=== PATIENT | female | born 1965 | race Caucasian/White ===

== ENCOUNTER 2024-07-10 09:00 | Observation (INO) | payer MEDICAID, SELFPAY ==
[2024-07-10] VITALS (16 sets, daily range): BP systolic 109–172; BP diastolic 47–107; PULSE 54–157; RESP 11–98; TEMP 36.4–37.4; O2SAT 96–99; BMI 36.9
--- NOTE | 2024-07-10 09:07 | XR_ITS ---
Examination: AP chest single view Technique one AP portable upright chest single view Exam date and time: July 10, 2024 1013 hours INDICATIONS: Shortness of breath today. FINDINGS: Lordotic chest. Normal heart size Lungs are clear. Moderate osteopenia IMPRESSION: No pneumonia or pulmonary edema
--- NOTE | 2024-07-10 09:07 | EKG_ITS ---
[facility] Test Date: 2024-07-10 Pat Name: RAJESH POE Department: Room: - Gender: Female Energy Assistant: : 1965 Requested By: Milton Marcelo Order Number: [id number] Reading MD: Milton Marcelo Measurements Intervals [place] Rate: 148 P: TX: QRS: 70 QRSD: 87 T: -24 QT: 288 QTc: 452 Interpretive Statements ATRIAL FIBRILLATION WITH RAPID VENTRICULAR RESPONSE NONSPECIFIC ST & T-WAVE ABNORMALITY No previous ECG available for comparison /store/S0/[id number].pdf
--- NOTE | 2024-07-10 09:07 | EDNOTE_ITS ---
ED Arrhythmia Palp. RME/HPI General Chief Complaint: Arrhythmia/Palpitations Stated Complaint: RACING HEART RATE Time Seen by Provider: 07/10/24 09:06 Arrival date/time: 07/10/24 09:00 RME / HPI RME / HPI narrative: This section includes all my notes and documentations, including HPI, PE, and ED course.? Milton Moore MD HPI: 58 year old female with history of hypertension presents to the ED BIBA from home for evaluation of elevated heart rate beginning ~ 1 hour prior to arrival. Per medics, ECG was performed which showed atrial fibrillation with RVR. No medications given. Denies fevers, chills, chest pain, shortness of breath, abdominal pain, n/v/d, or urinary symptoms. Denies consuming energy drinks or coffee today. Denies any known history of atrial fibrillation. No other compaints. ROS: All negative except as documented in HPI. Physical Exam: General:? Alert and oriented.? No acute distress when remaining still.?? Eyes:? Conjunctivae and lids clear.? ENT:? No nasal congestion.? Neck:? Supple.? Heart:? Irregularly irregular at 150bpm. ? Lungs:? No respiratory distress.? Good air movement.? No rhonchi, wheezing, rales.?? Abdomen:? Soft and nontender.?? Legs:? No clubbing, cyanosis, edema.? Skin:? Warm and dry.?? Neuro:? Alert and oriented X 3.?? I reviewed all diagnostic test results. My interpretation of the EKG is?Atrial fibrillation with RVR (148 bpm) with nonspecific ST-T changes. My interpretation of the chest x-ray is no pneumonia or pulmonary edema. Blood tests and urine tests?unremarkable. At this point, diagnoses include?atrial fibrillation with RVR. Treatment here included?Cardizem. Significant improvement noted. I discussed the case with our certified low vision therapist Dr. Henriquez.? About the presentation and exam and diagnostics and treatments here.? And need of further care in the hospital.? He agrees to consult. I discussed the case with our hospitalist.? About the presentation and exam and diagnostics and treatments here.? And need of further care in the hospital.? Will accept the patient. Milton Moore MD Related Data Previous Rx's ?Medication ?Instructions ?Recorded apixaban 5 mg tablet 5 mg PO BID 30 days #60 tabs 07/11/24 hydroxyzine HCl 25 mg tablet 25 mg PO TID PRN Anxiety #30 tabs 07/11/24 losartan 100 mg tablet 100 mg PO QDAY 30 days #30 tabs 07/11/24 metoprolol succinate 25 mg 25 mg PO QDAY #30 tabs 07/11/24 tablet,extended release 24 hr nicotine 7 mg/24 hr daily 7 mg topical QDAY #7 ea 07/11/24 transdermal patch sennosides 8.6 mg tablet (Senna 8.6 mg PO QDAY PRN constipation 07/11/24 Lax) #30 tabs Allergies Allergy/AdvReac Type Severity Reaction Status Date / Time No Known Allergies Allergy Verified 07/10/24 09:55 Review of Systems Review of Systems Systems Reviewed: All systems reviewed, normal except as documented Past Medical History Past Medical History CARDIAC: Negative Congestive Heart Failure RESPIRATORY: Negative Chronic Obstructive Pulmonary Disease (COPD) GENITOURINARY: Negative Renal Disease ENDOCRINE: Negative Diabetes Mellitus Type 1 or Diabetes Mellitus Type 2 Social History SMOKING STATUS: Current every day smoker ED Exam Narrative Physical exam: As noted in HPI Course Quality Measures none Orders Category Date Time Status Bedside COVID-19 Antigen Test NOW Care 07/10/24 09:07 Active Bedside Influenza A&B Antigen Test NOW Care 07/10/24 09:07 Active EKG (ED ONLY) *Do not use* NOW Care 07/10/24 09:07 Active Saline [Insert IV] NOW Care 07/10/24 09:07 Active Straight [In and Out Catheter] X1 Care 07/10/24 09:07 Active EKG (ED Only) Stat Exams 07/10/24 09:07 Ordered XR chest 1V portable Stat Exams 07/10/24 09:07 Ordered Arrhythmia/Palpitations MDM Narrative MDM Narrative:: Alyssa Acosta am scribing for and in the presence of Dr. Moore. Patient data External records reviewed:: [facility] previous records (I reviewed ED visit on 08/01/2022) and EMS form Clinical information provided by:: patient and EMS Social determinants that could affect healthcare access:: none Patient has the following chronic illnesses:: Hypertension How is presenting disease/condition affected by chronic disease/condition?: exacerbated by Evaluation data The following diagnostics were reviewed and interpreted by me:: lab results, radiology exam(s) and EKG tracing(s) (My interpretation of the EKG is: Atrial fibrillation with RVR (148 bpm) with nonspecific ST-T changes. Milton Moore MD) Lab and/or radiology exams considered but not ordered:: None Interpretation Summary: Unremarkable diagnostics Medications / Prescriptions Medications or Prescriptions considered but not ordered:: None Medication administrations:: Cardizem Consultations Consultation(s) initiated? (list below): Yes Consultation #1 (Physician, Specialty, Details): I spoke with certified low vision therapist Dr. Henriquez. Discussed patients PMHx, HPI, ED course, exam findings, labs, and EKG results. Will come evaluate the patient in the ED. Time: 10:55 Consultation #2 (Physician, Specialty, Details): Pipelayer agrees to consult. Time: 11:50 Consultation #3 (Physician, Specialty, Details): I spoke with hospitalist Dr. Elizabeth. Discussed patients PMHx, HPI, ED course, exam findings, labs, and radiology results. The hospitalist agree to accept the patient for admission. Time: 11:56 Diagnosis Differential diagnosis arrhythmia/palpitations: palpitations, anxiety, sinus tachycardia, artial fibrillation, artial flutter, ventricular premature beats, supraventricular tachycardia, ventricular tachycardia and WPW Most likely diagnosis given after review of the tests above:: Atrial fibrillation with RVR Admission Indicated Admission indicated?: indicated Admission Request Was there a request for admission?: Yes Admission Attestation Admission request attestation: Discussed case with Hospitalist service regarding admission. Discussed patients ED course, exam findings, labs, and radiology results. The Hospitalist [agrees,declines] to accept the patient for admission. Disposition Plan Disposition Plan: Admit Discharge Plan Plan Patient Disposition: Admit Acute Care w/in Hospital Problem List Clinical Impression: Atrial fibrillation with RVR
[2024-07-10 09:24] LABS: Collection Type, Urine Clean Catch
[2024-07-10 09:42] LABS: Bacteria,Urine Rare; Bilirubin,Urine Negative (Negative); Blood,Urine Negative (Negative); Clarity,Urine Clear (Clear/Hazy); Color,Urine Colorless (Lt Yel-Yel); Culture Indicated,Urine Not Indicated; Glucose, Urine Negative (Negative); Ketones,Urine Negative (Negative); Leukocyte Esterase,Urine Negative (Negative); Nitrite,Urine Negative (Negative); Protein,Urine Trace (Neg - Trace); RBC,Urine 1 /hpf (0-3); Specific Gravity,Urine 1.005 (1.001-1.035); Squamous Epithelial Cell,Urine 2 /hpf (0-5); Urobilinogen,Urine Negative mg/dL (0.0-1.0); WBC,Urine < 1 /hpf (0-5)
[2024-07-10 09:56] LABS: Basophils # (Auto) 0.1 Thou/mm3 (0.0-0.2); Basophils % (Auto) 1 % (0-2.5); Eosinophils # (Auto) 0.1 Thou/mm3 (0.0-0.5); Eosinophils % (Auto) 1 % (0-10); Hematocrit 42.3 % (36.0-46.0); Hemoglobin 14.6 g/dL (12.0-16.0); Immature Granulocytes % (Auto) 1 % (0-0); Immature Granulocytes Auto 0.03 Thou/mm3 (0.00-0.00); Lymphocytes # (Auto) 1.5 Thou/mm3 (1.0-4.8); Lymphocytes % (Auto) 22 % (10-50); Mean Corpuscular HGB Conc 34.5 g/dl (31.0-37.0); Mean Corpuscular Hemoglobin 33.5 pg (25.0-35.0); Mean Corpuscular Volume 97 fL (80-100); Monocytes # (Auto) 0.6 Thou/mm3 (0.0-0.8); Monocytes % (Auto) 9 % (0-12); Neutrophils # (Auto) 4.3 Thou/mm3 (1.8-7.7); Neutrophils % (Auto) 66 % (37-80); Nucleated Red Blood Cell % 0 /100 WBC (0); RDW Standard Deviation 51.8 fL (36.4-46.3); Red Blood Count 4.36 Miln/mm3 (4.00-5.20); White Blood Count 6.6 Thou/mm3 (3.6-11.0)
[2024-07-10 10:05] LABS: Alanine Aminotransferase 37 U/L (10-49); Albumin, Serum 4.3 gm/dL (3.4-4.8); Albumin/Globulin Ratio 1.3 (1.2-2.2); Alkaline Phosphatase 78 U/L (46-116); Anion Gap 6 (7-16); Aspartate Amino Transferase 64 U/L (0-34); BUN/Creatinine Ratio 14 Ratio (12-20); Bilirubin,Total 1.3 mg/dL (0.3-1.2); Blood Urea Nitrogen 10 mg/dL (9-23); Calcium 10.1 mg/dL (8.3-10.6); Calcium (Corrected) 10.1 mg/dL (8.5-10.1); Carbon Dioxide 25.7 mMol/L (20.0-31.0); Chloride 105 mMol/L (98-107); Creatinine (Component) 0.7 mg/dL (0.6-1.3); Estimated Creatinine Clearance 111.2 mL/min (>60); Globulin 3.3 gm/dL (2.3-3.5); Glucose 130 mg/dL (74-106); Magnesium 1.7 mg/dL (1.6-2.6); Osmolality,Calculated 274 (275-295); Potassium 3.8 mMol/L (3.4-5.1); Sodium 137 mMol/L (136-145); Thyroid Stimulating Hormone 1.97 uIU/mL (0.55-4.78); Total Protein 7.6 gm/dL (5.7-8.2); Troponin I < 0.020 ng/mL (0.0-0.045); eGFR > 60 See Note
[2024-07-10 10:08] LABS: D-Dimer 475 ng/mL (<600)
[2024-07-10 10:10] LABS: Platelet Count 63 Thou/mm3 (140-440)
[2024-07-10 10:24] LABS: B-Type Natriuretic Peptide 369 pg/mL (0-100)
--- NOTE | 2024-07-10 11:05 | ECHO_ITS ---
Transthoracic Echo Report Ht (in): 68 Wt (lb): 243 Exam Location: ER Status: Emergency Electronic System Engineer: Ivette Fernando Indications: Procedure Performed: BP: 141 / 97 HR: 70 Rhythm: Bradycardia Technical Quality: Fair MEASUREMENTS (Male / Female) Normal Values 2D ECHO LV Diastolic Diameter PLAX 4.5 cm 4.2 - 5.9 / 3.9 - 5.3 cm LV Systolic Diameter PLAX 3.1 cm IVS Diastolic Thickness 0.8 cm 0.6 - 1.0 / 0.6 - 0.9 cm LVPW Diastolic Thickness 0.9 cm 0.6 - 1.0 / 0.6 - 0.9 cm LV Relative Wall Thickness 0.4 LVOT Diameter 1.9 cm LA Volume Index 25.8 cm?/m? 16 - 28 cm?/m? Ascending Aorta Diameter 3.3 cm M-MODE Aortic Root Diameter MM 3.0 cm LA Systolic Diameter MM 3.8 cm LA Ao Ratio MM 1.3 AV Cusp Separation MM 1.8 cm DOPPLER AV Peak Velocity 162.0 cm/s AV Peak Gradient 10.5 mmHg AV Mean Gradient 4.0 mmHg AV Velocity Time Integral 33.6 cm LVOT Peak Velocity 115.0 cm/s LVOT Peak Gradient 5.3 mmHg LVOT Velocity Time Integral 29.6 cm LVOT Cardiac Index 2504.9 cm?/min?m? AV Area Cont Eq vti 2.5 cm? AV Area Cont Eq pk 2.0 cm? MV Peak Velocity 128.0 cm/s MV Peak Gradient 6.6 mmHg MV Mean Velocity 67.1 cm/s MV Mean Gradient 2.0 mmHg MV Area PHT 2.4 cm? Mitral E Point Velocity 127.0 cm/s Mitral A Point Velocity 101.0 cm/s Mitral E to A Ratio 1.3 LV E' Lateral Velocity 10.6 cm/s Mitral E to LV E' Lateral Ratio 12.0 LV E' Septal Velocity 8.6 cm/s Mitral E to LV E' Septal Ratio 14.8 FINDINGS Left Ventricle Normal left ventricular size, wall thickness, systolic function with no obvious regional wall motion abnormalities. The ejection fraction is visually estimated at 55-60%. Right Ventricle The right ventricle is normal in size and systolic function. Left Atrium The left atrium is normal by two-dimensional, color flow and Doppler imaging with no structural abnormalities, no thrombus formation present. Right Atrium The right atrium is normal by two-dimensional imaging, color flow and Doppler imaging with no struct ural abnormalities, no thrombus formation present. Atrial Septum The interatrial septum appears normal with no evidence of a shunt. Aorta The aorta is normal by two-dimensional, color flow and Doppler interrogation. Mitral Valve The mitral valve is moderately MAC. There is trace mitral valve regurgitation. Aortic Valve The aortic valve is trileaflet and normal by two-dimensional, color flow and Doppler interrogation. There is no significant aortic valve regurgitation. Tricuspid Valve The tricuspid valve is normal by two-dimensional, color flow and Doppler interrogation. There is tra ce tricuspid valve regurgitation. Pulmonic Valve There is no significant pulmonic valve regurgitation. Vessels The pulmonary artery appears normal. The inferior vena cava pulmonary and hepatic veins appear srinivas l. Pericardium The pericardium is normal by two-dimensional imaging. There is no significant pericardial effusion. CONCLUSIONS Indication: Afib Normal LV size and function. Estimated EF 55-60% Normal RV size and function Moderate MAC with limited posterfior mitral leaflet mobility. Trace MR, TR. Hieu Henriquez (Electronically Signed) Final Date: 10 July 2024 17:06
[2024-07-10] MEDS: METOPROLOL TARTRATE 25 MG TABLET PO (11:31)
[2024-07-10] MEDS: Magnesium Sulfate 2 GM Ivpb 2 GM/50 ML BAG IV ×3 (11:34→12:43)
[2024-07-10] MEDS: POTASSIUM CHLORIDE 20 mEq TABCR PO (11:38)
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
[2024-07-10] MEDS: LOSARTAN POTASSIUM 25 MG TABLET 100 MG PO (12:41)
[2024-07-10] MEDS: PANTOPRAZOLE INJ 40 MG VIAL IVP (12:42)
[2024-07-10 12:54] LABS: Slide Review Platelets confirmed
--- NOTE | 2024-07-10 13:00 | PC.CC ---
Patient is a 58 year-old female who presents to the hospital for racing heart rate. Guera DOOLEY made [id number] contact with patient. ASW introduced self, role, and reason for visit. Patient appeared alert and oriented to self, location, and situation. Patient was pleasant and engaged in initial assessment. Patient confirmed information on demographics and reports to living at home with her daughter, Bette Griffin. Patient stated if she is unable to make her medical decision she appoints her daughter Day Russell . At home patient is able to ambulate independently and complete her own ADLs. Patient does not use any DME at home. Patient's primary care provider is Isaias Lin at [facility] in [place] and her pharmacy of choice is [facility] in [place], [place]. Upon discharge patient plans to return home. director learning services will follow-up with any discharge needs.
--- NOTE | 2024-07-10 14:12 | ESHP_ITS ---
<Statement entered by Hira Egan MD - 07/10/24 20:55> This patient is a 58-year-old female with past medical history of hypertension, hyperlipidemia, anxiety and panic disorder presented with chief complaint of palpitations. She had an episode of panic attack but her symptoms persisted more than 1 hour. She denied any chest pain or shortness of breath. Patient was found to have A-fib RVR that resolved before patient could be given diltiazem. Patient reported to have smoking history since age 13 and smoked a pack a day. Patient is admitted for A-fib with RVR. [facility] was consulted. Troponin I was negative. Cardiology recommended to continue metoprolol XL 100 mg at bedtime, follow-up on echocardiogram and continue Eliquis 5 mg twice daily as [id number] 2. Has bled score:1. Hydroxyzine was added for anxiety. Given patient's thrombocytopenia we ordered hep panel, HIV, peripheral smear. Lab reported that peripheral smear showed normal platelet morphology. Will likely follow her tomorrow morning and place. Precautions. All labs and orders were reviewed. I saw and examined the patient, and I agree with current management stated by Dr Daphne MD,PGY1. Plan of care was discussed with the attending physician and resident physician. Disclaimer: Despite multiple revisions, due to the dictation software being used, the document bellow may not be free of grammatical errors including phonetic/typographic errors. However, this does not deter from our commitment to providing health care in the patient's best interest in mind. Dr. Jarrod MD, PGY 2 Documentation for date of: 07/10/24 HPI History of Present Illness History of present illness: CC: Fast heart Patient is a 58 year old female with a past medical history of hypertension, hyperlipidemia, generalized anxiety disorder with history of panic attacks who presented to the emergency room with a chief complaint of palpitations. She intially thought it was an episode of panic attack, but symptoms persisted more than 1 hours. Patient denied chest pain or shortness of breath. Patient denied dizziness. Only felt lightheaded but similar to episodes of panic attacks. Patient denied using any drugs such as cocaine or meth. Currently takes losartan hydrochlorothiazide for blood pressure control which was started by her PCP and lisinopril was DC'd given longstanding use of greater than 20 years. Patient was initially taking atorvastatin 40 mg at bedtime but DC'd secondary to myopathy. History of alcohol use disorder patient takes about 1/5 of vodka, last drink 2 days ago. Denied withdrawal symptoms. Patient is a heavy smoker, over 45 years smokes about 15 cigarettes/day. Patient denied any sick contacts. Patient was admitted on 07/10/2024 for new onset of A-fib with RVR. ER Course: Blood pressure 148/107--> repeat read 172/97 hypertensive urgency CMP potassium 3.8, BUN 10, creatinine 0.7, glucose 130 WBC 6.6, platelets 63 Total bili 1.3, AST 64, ALT 37 BNP 369, troponin less than 0.0 EKG showing A-fib with RVR ER Consulted [facility] Medication: Metoprolol 25 mg, Magnesium Sulfate 2 gram, Diltizem drip not given PMH: hypertension Hyperlipidemia Help syndrome Preclampsia Past Surgical History: 3 Past Family History: Materal Partent had history of Atrial Fibrillation Home Medication: Losartan hydrochlorothiazide 100/25 mg daily Atorvastatin 10 mg daily (pending lipid panel) Social History: Alochol Use Disorder-fifth of Vodka (750 ml) Cigarette use-Pack Year History 23 yeas (1/2 pack for 46 years) Denied Illicit Drug Use Allergies: NOne Code Status: Full Code Review of Systems Review of Systems Narrative Review of Systems: General appearance: NO weight change, NO fatigue, NO weakness, NO fever, NO chills, NO night sweats, No cough Skin: NO rash, NO itching, NO sores, NO moles HEENT: NO Trauma, NO nausea, NO vomiting, NO visual changes, YES LIHGHTHEADED BUT NOT DIZZY NO blurry vision, NO double vision, NO tinnitus, NO vertigo, NO ear discharge, NO rhinorrhea, NO stuffiness, NO sneezing, NO allergy, NO epistaxis. NO Hoarseness, NO sore throat, NO swollen neck. Cardiac: YES Palpitations, NO dyspnea on exertion, NO orthopnea, NO paroxysmal nocturnal dyspnea, NO edema Respiratory: NO Shortness of Breath, NO Wheezing, NO Cough, NO Sputum, NO hemoptysis GI:NO appetite, NO nausea, NO vomiting, NO dysphagia, NO changes in bowel frequency, NO stool color, NO diarrhea, NO constipation, NO hemetemesis, NO hemorrhoids, NO melena, NO hematechezia, NO abdominal pain, NO jaundice Renal: NO frequency, NO hesitancy, NO urgency, NO hematuria, NO nocturia, NO incontinence MSK: NO muscle weakness, NO gout, NO arthritis, NO muscle stiffness Neuro: NO headaches, NO tremors, NO weakness, NO paralysis, NO seizures, NO loss of consciousness, NO numbness. Hem: NO anemia, NO easy bruising/bleeding, NO petechiae, NO purpura Endo: NO heat/cold intolerance, NO excessive sweating, NO polyuria, NO polydipsia, NO polyphagia, NO thyroid problems, NO diabetes Pysch: NO mood, NO anxiety, NO depression Exam Vital Signs Temp Pulse Resp BP Pulse Ox O2 Del Method 97.5 F 62 16 172/97 H 98 Room Air 07/10/24 09:04 07/10/24 12:50 07/10/24 12:50 07/10/24 12:49 07/10/24 12:49 07/10/24 12:49 Narrative Exam General Appearance: Alert & Oriented X3, well-nourished female who is lying in bed in no acute distress HEENT: Skull symmetrical and atraumatic. Conjunctivae pale pink and moist. Pupils equal, round, reactive to light and accommodation (PERRL). External ear without lesion or discharge. Straight, nares patient, mucosa pink, no discharge. No thyroid nodule appreciated. No cervical lymphadenopathy. Cardio: Normal Rate and Rhythm with S1 and S2 heart sounds (afib resolved on physical exam). No murmurs or extra heart sounds auscultated. No bruits on carotid auscultation. No peripheral edema or cyanosis. Lungs: Symmetric with good expansion. Chest and back non-tender. Breath sounds vesicular without crackles, wheezing or rhonchi Abdomen: Non-tender, Non-distended, Normal Reactive Bowel Sounds Neuro: Alert, cooperative, oriented to person, place, and time. Speech clear. CN grossly intact. Upper motor strength 5/5 and Lower motor strength 5/5. Sensation intact. Results: Labs 07/11/24 04:37 07/11/24 04:37 Labs: Short CBC 07/10/24 Range/Units 09:38 WBC 6.6 (3.6-11.0) Thou/mm3 Hgb 14.6 (12.0-16.0) g/dL Hct 42.3 (36.0-46.0) % Plt Count 63 L (140-440) Thou/mm3 BMP 07/10/24 09:38 Sodium 137 Potassium 3.8 Chloride 105 Carbon Dioxide 25.7 BUN 10 Creatinine 0.7 Glucose 130 H Calcium 10.1 Cardiac Enzymes 07/10/24 Range/Units 09:38 Troponin I < 0.020 (0.0-0.045) ng/mL Liver Function 07/10/24 Range/Units 09:38 Total Bilirubin 1.3 H (0.3-1.2) mg/dL AST 64 H (0-34) U/L ALT 37 (10-49) U/L Alkaline Phosphatase 78 (46-116) U/L Albumin 4.3 (3.4-4.8) gm/dL Urine 07/10/24 Range/Units 09:19 Urine Color Colorless A (Lt Yel-Yel) Urine Clarity Clear (Clear/Hazy) Urine pH 7.0 (5.0-7.0) Ur Specific [place] 1.005 (1.001-1.035) Urine Protein Trace (Neg - Trace) Urine Glucose (UA) Negative (Negative) Quality Measures Quality Measures none Medications Home Medications and Allergies Allergies Allergy/AdvReac Type Severity Reaction Status Date / Time No Known Allergies Allergy Verified 07/10/24 09:55 Visit Medications Acetaminophen (Acetaminophen 325 Mg Tablet) 650 mg PO Q6H PRN PRN Reason: Fever >100.3 or pain Stop: 08/09/24 12:06 Losartan Potassium (Losartan Potassium 25 Mg Tablet) 100 mg PO QDAY DELIO Stop: 08/09/24 12:29 Last Admin: 07/10/24 12:41 Dose: 100 mg Pantoprazole Sodium (Pantoprazole Inj 40 Mg Vial) 40 mg IVP QDAY DELIO Stop: 08/09/24 12:14 Last Admin: 07/10/24 12:42 Dose: 40 mg Sennosides (Senna Tablet) 1 tab PO QDAY PRN; Protocol PRN Reason: constipation Stop: 08/09/24 12:06 Discontinued Medications Diltiazem HCl (Diltiazem Inj 5 Mg/Ml Vial 5 Ml) 25 mg IV X1 ONE Stop: 07/10/24 09:14 Last Admin: 07/10/24 14:05 Dose: Not Given Heparin Sodium (Porcine) (Heparin Sod Inj 5000 Unit/Ml Vial) 5,000 unit SC BID [facility] Stop: 07/24/24 12:14 Diltiazem HCl 125 mg/ Dextrose 125 mls @ 5 mls/hr IV .Q24H [facility]; Protocol Stop: 08/09/24 09:14 Last Admin: 07/10/24 12:33 Dose: Not Given Magnesium Sulfate (Magnesium Sulfate Ivpb) 2 gm in 50 mls @ 25 mls/hr IV X1 ONE Stop: 07/10/24 13:19 Last Admin: 07/10/24 12:42 Dose: 25 mls/hr Magnesium Sulfate (Magnesium Sulfate Ivpb) 2 gm in 50 mls @ 25 mls/hr IV X1 ONE Stop: 07/10/24 14:10 Last Admin: 07/10/24 12:43 Dose: 25 mls/hr Metoprolol Tartrate (Metoprolol Tartrate 25 Mg Tablet) 25 mg PO X1 ONE Stop: 07/10/24 10:45 Last Admin: 07/10/24 11:31 Dose: 25 mg Potassium Chloride (Potassium Chloride 20 Meq Tabcr) 20 meq PO X1 ONE Stop: 07/10/24 11:21 Last Admin: 07/10/24 11:38 Dose: 20 meq Assessment & Plan Plan Patient is a 58 year old female with a past medical history of hypertension, hyperlipidemia, generalized anxiety disorder who was admitted on 07/10/2024 for new onset of Atrial Fibrillation with rvr. #Atrial fibrillation with RVR, resolved #History of atrial fibrillation Patient presented with atrial fibrillation with RVR, denied chest pain, increased perspiration. Patient denied previous history of atrial fibrillation. Started on metoprolol succinate XL 100 mg and Eliquis. Patient has a past medical history of alcohol use disorder and still making history likely contributing to acute onset of atrial fibrillation. Chest x-ray unremarkable. Plan: Metoprolol succinate XL 100 p.o. at bedtime Eliquis 5 mg p.o. twice daily Echo pending A1c Lipid panel Mag Phosphorus TSH Keep K>4 and Mag >2 Cardiology Consulted, Dr. Henriquez consulted, appreciate recommendations #Hypertensive Urgency, resolved. #History of hypertension Home medication Losartan-HCTZ 100-25 mg Plan Losartan 100 mg QDay #Transaminitis Past medical history of alcohol use disorder this is likely causing elevated AST's and ALTs. AST 64, ALT 36 and total bili 1.3. Ultrasound of abdomen pending results. Hep panel and HIV panel obtained. Patient was taking atorvastatin previously but was DC'd by primary care provider secondary to myopathy when patient started medication. Switch to Rosuvastatin 10 mg at bedtime currently holding. Plan Hold home medication of Rosuvastatin 10 mg HS Monitor AST's and ALTs Pending hep panel, pending HIV panel, ultrasound #History of hyperlipidemia Currently holding home medication rosuvastatin 10 mg Plan Hold home medication of rosuvastatin Pending lipid results Pending AST and ALT improvement #Thrombocytopenia, etiology unknown Denied hematemesis or hematochezia. History of HELLP syndrome, less likely secondary it is unlikely to be present after 5 years. Heavy alcohol use leading to cirrhosis can not be ruled out. Given normal wbcs and hgb/hct-->autoimmune can not re ruled out vs HIT ab vs HIV. Less likely malignancy given unremarkable CBC. NO hematemesis or hematochezia reported, TTP/HUS less likely. Plan -Smear Review in house -Send out Polysubstance Use Disorder Alcohol Use Disorder Active Smoker Given history of general anxiety, may be secondary to Alcohol use or Cigarette use. CIWA 0. 23 Pack year history Plan -Nicotine Patch -No CIWA -social referral AM Health Maintenance: Disp: Pt is currently admitted to floors for further management of Afib w/ RVR, awaiting echo. FEN: Cardiac DVT: Heparin Q12 Code: Full Code - The patient's plan was discussed with attending Dr. Elizabeth and senior residents Dr. Jarrod Serna MD PGY1 Internal Medicine Attending Provider Attestation/Addendum I have discussed and was present for the essential components of the history, physical examination, diagnosis, and treatment plan with the resident. I agree with the patient's care as documented by the resident and amended herein by me. Mitchell Elizabeth DO. Although this document has been carefully reviewed, there may still be some phonetic and other typographical errors. These errors are purely grammatical due to imperfections in the software program and should not be construed in any way to compromise the substance of the patient's medical care during this visit.
--- NOTE | 2024-07-10 15:26 | XR_ITS ---
Examination: Abdomen sonogram, Limited Date and time of exam: July 10, 2024 1443 hours INDICATIONS: Elevated liver function tests thrombocytopenia on laboratory examination today, alcohol abuse history Technique: Real-time reina scale transabdominal sonographic images of the upper abdomen obtained. Findings: Negative for gallstones Gallbladder wall 0.3 cm no edema Common bile duct 0.4 cm Pancreatic head 3.1 cm Liver 21.1 cm lobular contours fatty infiltration no focal liver lesions Normal hepatopedal portal venous flow Patent IVC IMPRESSION: Normal gallbladder Normal common bile duct Moderate hepatomegaly, fatty liver, primary hepatocellular disease
[2024-07-10 15:34] LABS: HIV (1&2) Antibody Rapid Non-Reactive
[2024-07-10 15:59] LABS: Path Review Blood Smear Sent to Pathologist
[2024-07-10 16:30] LABS: Hepatitis A Antibody IgM Non Reactive (Non React); Hepatitis B Core Antibody IgM Non Reactive (Non React); Hepatitis B Surface Antigen Non Reactive (Non React); Hepatitis C Antibody Non Reactive (Non React)
[2024-07-10 18:40] LABS: Troponin I < 0.020 ng/mL (0.0-0.045)
[2024-07-10] MEDS: APIXABAN 2.5 MG TABLET 5 MG PO (20:18)
[2024-07-10] MEDS: METOPROLOL SUCCINATE XL 25 MG TABCR 100 MG PO (20:19)
[2024-07-11] VITALS (35 sets, daily range): BP systolic 96–132; BP diastolic 57–68; PULSE 48–62; RESP 13–46; TEMP 36.2–36.8; O2SAT 95–99; BMI 37.8
[2024-07-11 05:47] LABS: Basophils # (Auto) 0.1 Thou/mm3 (0.0-0.2); Basophils % (Auto) 1 % (0-2.5); Eosinophils # (Auto) 0.2 Thou/mm3 (0.0-0.5); Eosinophils % (Auto) 3 % (0-10); Hematocrit 37.9 % (36.0-46.0); Hemoglobin 12.6 g/dL (12.0-16.0); Immature Granulocytes % (Auto) 0 % (0-0); Immature Granulocytes Auto 0.02 Thou/mm3 (0.00-0.00); Lymphocytes # (Auto) 2.5 Thou/mm3 (1.0-4.8); Lymphocytes % (Auto) 39 % (10-50); Mean Corpuscular HGB Conc 33.2 g/dl (31.0-37.0); Mean Corpuscular Hemoglobin 33.3 pg (25.0-35.0); Mean Corpuscular Volume 100 fL (80-100); Monocytes # (Auto) 0.6 Thou/mm3 (0.0-0.8); Monocytes % (Auto) 9 % (0-12); Neutrophils # (Auto) 3.2 Thou/mm3 (1.8-7.7); Neutrophils % (Auto) 49 % (37-80); Nucleated Red Blood Cell % 0 /100 WBC (0); RDW Standard Deviation 52.2 fL (36.4-46.3); Red Blood Count 3.78 Miln/mm3 (4.00-5.20); White Blood Count 6.5 Thou/mm3 (3.6-11.0)
[2024-07-11 05:48] LABS: Platelet Count 52 Thou/mm3 (140-440)
[2024-07-11 05:53] LABS: Glucose Estimated Average 100 mg/dL (80-131); Hemoglobin A1C 5.1 % Hgb (4.8-6.0)
[2024-07-11 05:58] LABS: INR 1.2 (0.9-1.3); Partial Thromboplastin Time 28.2 Seconds (22.0-36.0); Prothrombin Time 12.5 Seconds (9.0-12.2); Slide Review Platelets confirmed
[2024-07-11 06:16] LABS: Alanine Aminotransferase 28 U/L (10-49); Albumin/Globulin Ratio 1.4 (1.2-2.2); Alkaline Phosphatase 66 U/L (46-116); Anion Gap 5 (7-16); Aspartate Amino Transferase 45 U/L (0-34); BUN/Creatinine Ratio 18 Ratio (12-20); Bilirubin,Total 1.5 mg/dL (0.3-1.2); Blood Urea Nitrogen 14 mg/dL (9-23); Calcium 9.2 mg/dL (8.3-10.6); Calcium (Corrected) 9.2 mg/dL (8.5-10.1); Carbon Dioxide 25.9 mMol/L (20.0-31.0); Cardiac Risk Estimate 2.7 RATIO (3.7-5.6); Chloride 105 mMol/L (98-107); Cholesterol 180 mg/dL (132-200); Creatinine (Component) 0.8 mg/dL (0.6-1.3); Estimated Creatinine Clearance 98.6 mL/min (>60); Globulin 2.8 gm/dL (2.3-3.5); Glucose 99 mg/dL (74-106); HDL Cholesterol 67 mg/dL (40-60); LDL Cholesterol,Calculated 97 mg/dL (0-130); Magnesium 2.1 mg/dL (1.6-2.6); Osmolality,Calculated 272 (275-295); Potassium 3.9 mMol/L (3.4-5.1); Sodium 136 mMol/L (136-145); Thyroid Stimulating Hormone 2.39 uIU/mL (0.55-4.78); Total Protein 6.8 gm/dL (5.7-8.2); Triglycerides 78 mg/dL (30-150); eGFR > 60 See Note
[2024-07-11] MEDS: PANTOPRAZOLE INJ 40 MG VIAL IVP (09:36)
[2024-07-11] MEDS: APIXABAN 2.5 MG TABLET 5 MG PO (09:36)
[2024-07-11] MEDS: LOSARTAN POTASSIUM 25 MG TABLET 100 MG PO (09:36)
[2024-07-11] MEDS: MAGNESIUM OXIDE 400 MG TABLET PO (09:37)
--- NOTE | 2024-07-11 11:15 | ESDS_ITS ---
Planned Discharge Date 07/11/24 DS: Providers Provider Date of admission: 07/10/24 12:07 Primary care physician: ZEINA Dumont Admitting Provider: Luis F Elizabeth DO Attending Provider on Admission: Luis F Elizabeth DO Consults: 07/10/24 10:56 Consult to Cardiology Stat Comment: Consulting Provider: Hieu Henriquez Instructions: Atrial fibrillation with RVR Attending Provider on DC: Jil Serna MD Discharging Provider: Jil Serna MD DS: Diagnosis Problem List Completed Was Problem List Reviewed/Reconciled?: Yes Hospital Course Hospital Course Hospital course: Patient is a 58 year old female with a past medical history of hypertension, hyperlipidemia, generalized anxiety disorder who was admitted on 07/10/2024 for new onset of Atrial Fibrillation with rvr. ER Course: Blood pressure 148/107--> repeat read 172/97 hypertensive urgency CMP potassium 3.8, BUN 10, creatinine 0.7, glucose 130 WBC 6.6, platelets 63 Total bili 1.3, AST 64, ALT 37 BNP 369, troponin less than 0.0 EKG showing A-fib with RVR ER Consulted [facility] Medication: Metoprolol 25 mg, Magnesium Sulfate 2 gram, Diltizem drip not given Hospital Course: Patient was done in A-fib with RVR on admission and started on metoprolol XL 100 mg at night and Eliquis 15 mg twice daily. Patient experienced bradycardia, heart rate dropped to low 50s. Metropol succinate XL decreased to 50 mg at night. Lipid panel showed cholesterol 180, LDL 97, and HDL 67. Patient ACS ED rescore 5.5, monitor statins recommended. Patient developed severe myositis with atorvastatin. PCP changed patient to rosuvastatin. Please continue rosuvastatin and follow-up with your PCP. Echo showed preserved ejection fraction of 55 to 60%. CBC showed thrombocytopenia, platelets 52. Patient recommended to follow-up outpatient. Remote history of help syndrome but less likely secondary to this. HIV negative and hepatitis panel negative. Platelets and elevated transaminitis likely secondary to alcohol use disorder. Please reduce alcohol intake. Please stop smoking. Liver ultrasound showed normal gallbladder, normal common bile duct, moderate hepatomegaly with fatty liver. Currently holding your losartan-hydrochlorothiazide as metoprolol 50mg XL was started. Please follow up with your PCP if you need to restart Losart- hydrochlorothiazide. Instructions: Please continue Eliquis 5 mg twice daily for clot prevention If you experience bleeding with Eliquis, please stop medication and speak with your primary care provider. Please continue metoprolol succinate 50 mg p.o. at night for atrial fibrillation Please HOLD losartan 100 mg once a day until you follow up with your primary care provider because we started Metoprolol Succinate. Please continue the rest of your medications as prescribed , including Rosuvastatin 10 mg at night. -Please follow up with your primary care provider within one week of discharge and please set up a cardiology referral with our primary care provider. -If your symptoms worsen,please seek immediate medical attention and return to your nearest emergency room -If you do not have a primary care provider, you may follow up at the [facility] at [address] [place] [address] [address], [place] [address], Disposition: Home #Atrial fibrillation, rate controlled on metoprolol succinate #Atrial fibrillation with RVR, resolved #Hyptertension #Hypertensive Urgency, resolved. #Elevated transaminitis #Hyperlipidemia #Thrombocytopenia - The patient's plan was discussed with attending Dr. Clara Serna MD PGY1 Internal Medicine Time Spent with Patient Time attestation: Total time spent providing and/or coordinating discharge services: at least 35 minutes of care and coordination. Exam Vital Signs Temp Pulse Resp BP Pulse Ox O2 Del Method 97.1 F 61 19 102/57 L 96 Room Air 07/11/24 04:02 07/11/24 09:36 07/11/24 04:05 07/11/24 09:36 07/11/24 04:05 07/11/24 04:02 Narrative Exam General Appearance: Alert & Oriented X3, well-nourished female who is lying in bed in no acute distress HEENT: Skull symmetrical and atraumatic. Conjunctivae pink and moist. Pupils equal, round, reactive to light and accommodation (PERRL). External ear without lesion or discharge. Straight, nares patient, mucosa pink, no discharge. No thyroid nodule appreciated. No cervical lymphadenopathy. Cardio: Normal Rate and Rhythm with S1 and S2 heart sounds. No murmurs or extra heart sounds auscultated. No bruits on carotid auscultation. No peripheral edema or cyanosis. Lungs: Symmetric with good expansion. Chest and back non-tender. Breath sounds vesicular without crackles, wheezing or rhonchi Abdomen: Non-tender, Non-distended, Normal Reactive Bowel Sounds Neuro: Alert, cooperative, oriented to person, place, and time. Speech clear. CN grossly intact. Upper motor strength 5/5 and Lower motor strength 5/5. Sensation intact. Discharge Plan Plan Patient Disposition: HOME (Self Care) Care Plan Goals: Instructions: Please continue Eliquis 5 mg twice daily for clot prevention If you experience bleeding with Eliquis, please stop medication and speak with your primary care provider. Please continue metoprolol succinate 25 mg p.o. at night for atrial fibrillation Please HOLD losartan 100 mg once a day until you follow up with your primary care provider because we started Metoprolol Succinate. Please continue the rest of your medications as prescribed, including Rosuvastatin 10 mg t night. -Please follow up with your primary care provider within one week of discharge and please set up a cardiology referral with our primary care provider. -If your symptoms worsen,please seek immediate medical attention and return to your nearest emergency room -If you do not have a primary care provider, [facility] [address], [place] [address], Disposition: Home Prescriptions/Referrals Prescriptions/Med Rec: New losartan 100 mg tablet 100 mg PO QDAY 30 Days Qty: 30 0RF hydroxyzine HCl 25 mg Tablet 25 mg PO TID PRN (Reason: Anxiety) Qty: 30 0RF apixaban 5 mg tablet 5 mg PO BID 30 Days Qty: 60 0RF nicotine 7 mg/24 hr patch 24 hour 7 mg topical QDAY Qty: 7 0RF sennosides [Senna Lax] 8.6 mg Tablet 8.6 mg PO QDAY PRN (Reason: constipation) Qty: 30 0RF metoprolol succinate 25 mg tablet extended release 24 hr 25 mg PO QDAY Qty: 30 0RF Discontinued lisinopril 40 mg Tablet 40 mg PO QDAY Referrals: Isaias Lin FNP [Primary Care Provider] - Patient/Caregiver Discharge Instructions Print Language: Ecuadorean Stand Alone Forms: [employer] Award Info., Patient Portal Info Letter Discharge Order Discharge Orders: Discharge (Routine); Ordered 07/11/24 Ordered By: Hira Egan Quality Discharge Quality Measures VTE prophylaxis Attestestation MD Attestation I have discussed and was present for the essential components of the discharge history, physical examination, diagnosis, and discharge treatment plan with the resident. I agree with the patient's discharge care as documented by the resi dent and amended herein by me. Mitchell Elizabeth DO. The patient understood all discharge instructions, all questions were answered satisfactorily. The patient was instructed to return to the Emergency Department is symptoms worsened or persisted. Patient will be discharged on metoprolol 25 mg daily as well as Eliquis 5 mg twice daily for atrial fibrillation.. Patient was stable, afebrile, tolerating p.o. intake and ambulatory at time of discharge. Although this document has been carefully reviewed, there may still be some phonetic and other typographical errors. These errors are purely grammatical due to imperfections in the software program and should not be construed in any way to compromise the substance of the patient's medical care during this visit.
--- NOTE | 2024-07-11 12:53 | ESPR_ITS ---
<Statement entered by Hieu Henriquez MD - 07/12/24 05:18> I have personally seen and examined the patient separately on the above date of service and discussed the plan of care with the resident. I reviewed the resident Dr. Carpenter consultation note and agree with the resident findings and plan in the note above and have also edited the documentation to reflect my findings and plan. A 58-year-old female with a past medical history of morbid obesity with a BMI of 36, essential hypertension, hyperlipidemia, panic attacks presented to the emergency department of palpitations this morning. Patient apparently has been having a lot of stressors in her life recently including her son who is homeless as well as finances and [place] affected [place]. Patient woke up in the morning with significant palpitations but denied any Chest pain chest pressure or shortness of breath for orthopnea or PND or leg swelling. Patient did complain of some dizziness or lightheadedness but otherwise denied any other complaints including any fever chills or cough or sputum production. Patient denies any previous cardiac history including any atrial fibrillation. 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 Denies any kind of drug or alcohol abuse but drink occasionally. More than 40 pack years of smoking history Juli here with her daughter. Significant family history of heart disease with grandfather dying of aortic aneurysm in the 50s along with heart disease for mother with stents as well as atrial fibrillation. He on losartan hydrochlorothiazide and Crestor at home apart from supplements. In the emergency department initial vitals showed the heart rate was in the 150s and EKG showed atrial fibrillation with RVR with nonspecific ST-T changes. Rest of the vitals appear to be normal. Labs showed low platelets of 63,000, Hb normal at 14.6 and WBC 6.6. BUN 10 and creatinine of 0.7 potassium was 3.8 troponin 2 sets were negative. LFTs normal. UA negative. Chest x-ray normal. Cardiology was consulted for further evaluation of atrial fibrillation with RVR. Plan: New onset atrial fibrillation with RVR: No previous history of A-fib and unclear etiology at the present point of time. Ordered an echocardiogram for further evaluation to rule out any structural abnormalities. Patient did spontaneously convert to normal sinus rhythm in the emergency department and recommend to start metoprolol XL 50 mg once daily for now. Patient chest Vascor is 2 for age as well as female sex. Discussed the risk benefits and alternatives for anticoagulation and patient agreeable to take Eliquis 5 mg twice daily. Recommend replace electrolytes and keep potassium greater than 4 magnesium greater than 2.0 at all times. Patient recommended to follow-up with PCP as outpatient follow-up with cardiology as needed No new episodes of A-fib with RVR since yesterday admission and okay to discharge home and Blood pressure appears to be optimally controlled and recommend to continue losartan hydrochlorothiazide home dosage for now and also add metoprolol XL to the regimen. Check TSH A1c and lipid profile for further cardiac risk stratification. Continue Crestor 10 mg for now. Counseled patient on weight loss given her obesity. Recommended to quit smoking completely. Unclear cause of thrombocytopenia and primary team to continue to workup for the same. Management of rest of the medical conditions as per primary team and other consultants. Thank you for the consult and allowing me to participate in the care of the patient. Cardiology will continue to follow. Hieu Henriquez M.D. Interventional Cardiology Documentation for date of: 07/11/24 Subjective Subjective Interval history: Patient examined at bedside today. Overnight events on telemetry included patient being on lower heart rate 50s to 60s, low was 48. Patient spoke to today and denies having any chest pain shortness of breath or headache. She denies also feeling chest palpitations and is wondering when she can go home. She does not feel any different. Yesterday even after we told her that her heart rate has been a little low and that was because we started a beta-terra on her. No other complaints at this time Exam Vital Signs Temp Pulse Resp BP Pulse Ox O2 Del Method 97.1 F 61 19 102/57 L 96 Room Air 07/11/24 04:02 07/11/24 09:36 07/11/24 04:05 07/11/24 09:36 07/11/24 04:05 07/11/24 04:02 Narrative Exam General: AAOx3, NAD, obese female, pleasant, HEENT: Moist mucous membranes, conjunctiva clear, EOMI, PERRLA, Cardiovascular: S1, S2, radial pulses +2 bilat, Bradycardic Pulmonary: CTAB bilat no cough, no wheezing GI: No tenderness to light or deep palpitation, no guarding, rigidity, rebound tenderness or distension Extremities: No presence of trace or pitting edema in lower extremities bilaterally, dorsalis pedis pulses +2 bilaterally, some scabbing in both UE Neuro: AAOx3, no focal motor or sensory deficits in the UE or LE bilat Psych: Good judgement, thought and behavior. Cooperative Objective Labs 07/11/24 04:37 07/11/24 04:37 Labs: Laboratory Results - last 24 hr 07/10/24 07/10/24 07/10/24 09:38 15:00 18:01 WBC RBC Hgb Hct MCV MCH MCHC RDW Std Deviation Plt Count Neut % (Auto) Lymph % (Auto) [place] % (Auto) Eos % (Auto) Baso % (Auto) Neut # (Auto) Lymph # (Auto) [place] # (Auto) Eos # (Auto) Baso # (Auto) Immature Gran # (Auto) Absolute Nucleated RBC Immature Gran % Nucleated RBC % Smear Path Review Sent to Pathologist Cancelled PT INR APTT Sodium Potassium Chloride Carbon Dioxide Anion Gap BUN Creatinine Estim Creat Clear Calc eGFR BUN/Creatinine Ratio Glucose Estimated Ave Glu mg/dL Hemoglobin A1c Calculated Osmolality Calcium Corrected Calcium Phosphorus Magnesium Total Bilirubin AST ALT Alkaline Phosphatase Troponin I < 0.020 Total Protein Albumin Globulin Albumin/Globulin Ratio Triglycerides Cholesterol LDL Cholesterol, Calc HDL Cholesterol Cholesterol/HDL Ratio TSH Hepatitis A IgM Ab Non Reactive Hep Bs Antigen Non Reactive Hep B Core IgM Ab Non Reactive Hepatitis C Antibody Non Reactive HIV 1&2 Antibody Rapid Non-Reactive Misc Test Result Platelets confirmed 07/11/24 04:37 WBC 6.5 RBC 3.78 L Hgb 12.6 D Hct 37.9 MCV 100 MCH 33.3 MCHC 33.2 RDW Std Deviation 52.2 H Plt Count 52 L Neut % (Auto) 49 Lymph % (Auto) 39 [place] % (Auto) 9 Eos % (Auto) 3 Baso % (Auto) 1 Neut # (Auto) 3.2 Lymph # (Auto) 2.5 [place] # (Auto) 0.6 Eos # (Auto) 0.2 Baso # (Auto) 0.1 Immature Gran # (Auto) 0.02 H Absolute Nucleated RBC 0.00 Immature Gran % 0 Nucleated RBC % 0 Smear Path Review PT 12.5 H INR 1.2 APTT 28.2 Sodium 136 Potassium 3.9 Chloride 105 Carbon Dioxide 25.9 Anion Gap 5 L BUN 14 Creatinine 0.8 Estim Creat Clear Calc 98.6 eGFR > 60 BUN/Creatinine Ratio [address] Glu mg/dL 100 Hemoglobin A1c 5.1 Calculated Osmolality 272 L Calcium 9.2 Corrected Calcium 9.2 Phosphorus 3.0 Magnesium 2.1 Total Bilirubin 1.5 H AST 45 H ALT 28 Alkaline Phosphatase 66 Troponin I Total Protein 6.8 Albumin 4.0 Globulin 2.8 Albumin/Globulin Ratio 1.4 Triglycerides 78 Cholesterol 180 LDL Cholesterol, Calc 97 HDL Cholesterol 67 H Cholesterol/HDL Ratio 2.7 L TSH 2.39 Hepatitis A IgM Ab Hep Bs Antigen Hep B Core IgM Ab Hepatitis C Antibody HIV 1&2 Antibody Rapid Misc Test Result Platelets confirmed Quality Measures Quality Measures VTE prophylaxis Assessment & Plan Assessment Current Active Medications: Generic Name Dose Route Start Last Admin Trade Name Freq PRN Reason Stop Dose Admin Acetaminophen 650 mg 07/10/24 12:07 Acetaminophen 325 Mg Tablet PO 08/09/24 12:06 Q6H PRN Fever >100.3 or pain Apixaban 5 mg 07/10/24 21:00 07/11/24 09:36 Apixaban 2.5 Mg Tablet PO 08/09/24 20:59 5 mg BID DELIO Administration Hydroxyzine HCl 25 mg 07/10/24 14:30 Hydroxyzine Hcl 25 Mg Tablet PO 08/09/24 14:29 TID PRN ANXIETY Losartan Potassium 100 mg 07/10/24 12:30 07/11/24 09:36 Losartan Potassium 25 Mg Tablet PO 08/09/24 12:29 100 mg QDAY DELIO Administration Magnesium Oxide 400 mg 07/11/24 09:00 07/11/24 09:37 Magnesium Oxide 400 Mg Tablet PO 08/10/24 08:59 400 mg QDAY DELIO Administration Metoprolol Succinate 50 mg 07/11/24 21:00 Metoprolol Succinate Xl 25 Mg Tabcr PO 08/10/24 20:59 HS DELIO Nicotine 7 mg 07/10/24 19:15 07/11/24 09:36 Nicotine Patch 7 Mg/24 Hr Patch.Td24 TOP 08/09/24 19:14 Not Given QDAY DELOI Pantoprazole Sodium 40 mg 07/10/24 12:15 07/11/24 09:36 Pantoprazole Inj 40 Mg Vial IVP 08/09/24 12:14 40 mg QDAY DELIO Administration Sennosides 1 tab 07/10/24 12:07 Senna Tablet PO 08/09/24 12:06 QDAY PRN constipation Protocol Plan Assessment Asya is a 58-year-old female past medical history of hypertension, panic attacks, and HLD who is here for further management of afib with RVR that pt has converted on her own. #A-fib with RVR, improving, new onset #Asymptomatic bradycardia Patient returned to NSR on its own Patient likely went into A-fib due to stress as she has multiple things going on in her personal life at this time Patient also may be sick however is afebrile COVID-negative, flu pending, unlikely sick Patient will be unable to see Dr. Henriquez outpatient due to insurance, will get workup here for recent outpatient CHADVASC: 2 points HAS-BLED: 1 point Echo: EF 55 to 60%, normal LV no wall motion abnormalities Patient has been going heart rate low, as low as 40, likely related to metoprolol, will adjust dose Patient to follow-up with PCP for new onset A-fib Plan: ?Follow-up EKG ?Continue with metoprolol XL 25 mg by mouth ?Keep potassium and magnesium above 4 and 2 respectively #Essential hypertension Patient is on losartan-hydrochlorothiazide Unsure why patient is on hydrochlorothiazide Can consider readjusting patient's blood pressure medicines Plan: ? Patient will likely be on metoprolol 25 manage blood pressure in addition to losartan 100 mg #HLD Does not take home Crestor 10 mg as it gives her muscle aches Total cholesterol 180, LDL 97 Plan: ?Continue with alternative statin outpatient #Thrombocytopenia, worsening Pt denies hx of it Platelets at 52 today Will likely need to do follow-up CBC outpatient Plan: ?Trend with CBC ?Primary team to follow Patient seen and care discussed with my attending physician, Dr. Florence Pena, PGY-1
[2024-07-11] MEDS: POTASSIUM CHLORIDE 20 mEq TABCR PO (12:58)
--- NOTE | 2024-07-11 13:16 | PC.NURSE ---
Called Dr. Egan and clarified metoprolol ordered for discharge since patient has been bradycardic. MD Egan stated that she will follow up with the team to see if that order is necessary.
--- NOTE | 2024-07-11 13:20 | EKG_ITS ---
[facility] Test Date: 2024-07-11 Pat Name: RAJESH POE Department: Room: S250A Gender: Female Recovery Collector: GRICELDA : 1965 Requested By: Hira Egan Order Number: [id number] Reading MD: Hira Egan Measurements Intervals [place] Rate: 54 P: 267 MD: 146 QRS: -54 QRSD: 88 T: -67 QT: 454 QTc: 432 Interpretive Statements ECTOPIC ATRIAL BRADYCARDIA INFERIOR MYOCARDIAL INFARCTION , OF INDETERMINATE AGE Compared to ECG 07/10/2024 09:11:51 Bradycardia, nonsinus now present Myocardial infarct finding now present Atrial fibrillation no longer present T-wave abnormality no longer present /store/S0/[id number].pdf
--- NOTE | 2024-07-11 15:10 | PC.NURSE ---
Per MD Serna, ok to discharge patient on metoprolol ordered. Was advised to instruct patient to not take losartan and metoprolol together and to also keep and eye out for any dosage changed on metoprolol.
== END 2024-07-11 14:30 | disposition home or self-care (01) ==
LOC: SERX 11:56 → S2SX 07-11 04:32 → SERHOLD 07-13 10:18 → S2NX 07-13 10:19 → S2SX 07-13 10:19
PROVIDERS: Student in an Organized Health Care Education/Training Program; Admitting Provider Student in an Organized Health Care Education/Training Program; Emergency Provider Emergency Medicine; PCP Nurse Practitioner Family; Visit Provider Student in an Organized Health Care Education/Training Program
DX: I48.91 Unspecified atrial fibrillation (principal); F41.0 Panic disorder [episodic paroxysmal anxiety]; I10 Essential (primary) hypertension; E78.5 Hyperlipidemia, unspecified; D69.6 Thrombocytopenia, unspecified; F17.210 Nicotine dependence, cigarettes, uncomplicated; I16.0 Hypertensive urgency; K76.0 Fatty (change of) liver, not elsewhere classified; F41.1 Generalized anxiety disorder; M60.9 Myositis, unspecified; R74.01 Elevation of levels of liver transaminase levels; Z01.810 Encounter for preprocedural cardiovascular examination; E66.01 Morbid (severe) obesity due to excess calories; Z68.37 Body mass index [BMI] 37.0-37.9, adult; Z82.49 Family history of ischemic heart disease and other diseases of the circulatory system; I25.2 Old myocardial infarction
CPT/HCPCS: 36415; 71045; 76705; 80053; 80061; 80074; 80307; 81001; 83036; 83735; 83880; 84100; 84443; 84484; 85025; 85379; 85610; 85730; 86703; 87400; 87811; 93005; 93306; 96365; 96366; 96375; 99285; G0378; J2470; J3475; A9270